=== PATIENT | male | born 1980 | race Caucasian/White ===

== ENCOUNTER 2017-11-04 18:15 | Emergency (ER) | payer OTHER ==
[~2017-11-04] VITALS: Ht 180.3 cm; Wt 68.0 kg
[2017-11-04] MEDS ORDERED: MEDROL DOSEPAK4 MG PO (18:48)
[2017-11-04] MEDS ORDERED: HYDROXYZINE HCL25 MG PO (18:48)
[2017-11-04] MEDS ORDERED: CEPHALEXIN500 M1 PO (18:48)
[2017-11-17] MEDS ORDERED: BACITRACIN 500U30 GM OPH (13:18)
[2017-11-17] MEDS ORDERED: ATARAX,VISTARIL50 MG PO (13:18)
[2017-11-17] MEDS ORDERED: POLYSPORIN OINT15 GM T (13:21)
== END 2017-11-04 18:54 | disposition home or self-care (01) ==
LOC: ED 18:15
DX: R21 Rash and other nonspecific skin eruption (principal); F17.200 Nicotine dependence, unspecified, uncomplicated